=== PATIENT | female | born 1945 | race Caucasian/White ===

== ENCOUNTER 2017-03-13 11:51 | Day surgery (SDC) | payer MEDICARE, OTHER ==
[2016-02-02 12:35] VITALS: BMI 39.4
[2017-03-13 14:54] VITALS: O2SAT 98
[2017-03-13 14:58] VITALS: BP 141/75; PULSE 79; RESP 15; TEMP 98.1
== END 2017-03-13 14:53 | disposition home or self-care (01) ==
LOC: C.SDS 11:51
PROVIDERS: ATTEND Ophthalmology
DX: H11.052 Peripheral pterygium, progressive, left eye (principal); H17.9 Unspecified corneal scar and opacity